=== PATIENT | female | born 1950 | race Caucasian/White ===

== ENCOUNTER 2018-05-13 19:40 | Emergency (ER) | payer MEDICARE ==
[~2018-05-13] VITALS: Ht 165.1 cm; Wt 99.8 kg
[2018-05-13] MEDS ORDERED: KETOROLAC 60MG/2ML VIAL IM ONE (20:15)
[2018-05-13] MEDS ORDERED: TRAMADOL 50MG TABLET PO ONE (22:00)
[2018-05-13 23:06] VITALS: BP 140/72
== END 2018-05-13 23:07 | disposition home or self-care (01) ==
LOC: ER 19:40
DX: S80.02XA Contusion of left knee, initial encounter (principal); E11.9 Type 2 diabetes mellitus without complications; E78.00 Pure hypercholesterolemia, unspecified; I48.91 Unspecified atrial fibrillation; Z96.659 Presence of unspecified artificial knee joint; W18.39XA Other fall on same level, initial encounter; Y93.89 Activity, other specified; Y92.89 Other specified places as the place of occurrence of the external cause; Y99.8 Other external cause status
CPT/HCPCS: 29505; 73552; 73560; 73590; 96372; 99283; J1885

== ENCOUNTER 2018-05-14 09:23 | Inpatient (IN) | payer MEDICARE, BC ==
[~2018-05-14] VITALS: Ht 172.7 cm; Wt 117.5 kg
[2018-05-14] MEDS ORDERED: SODIUM CHLORIDE 0.9% 1,000 ML IV ONE (10:42)
[2018-05-14] MEDS ORDERED: FENTANYL CITRATE/PF 50MCG/ML 2ML VIAL IV ONE (10:45)
[2018-05-14 12:00] LABS: BASOPHILS % 0.9 % (0.0-2.0); EOSINOPHILS % 0.4 % (0.0-5.0); HEMATOCRIT. 41.7 % (36.0-48.0); HEMOGLOBIN. 13.7 g/dL (12.0-16.0); LYMPHOCYTES % 10.4 % (20.0-50.0); MEAN CORPUSCULAR HEMOGLOBIN 27.8 pg (28.0-32.0); MEAN CORPUSCULAR VOLUME 84.6 fL (81.0-99.0); MEAN PLATELET VOLUME 9.1 fl (7.4-10.4); MONOCYTES % 7.5 % (2.0-8.0); NEUTROPHILS % 80.8 % (40.0-76.0); PLATELET 289 x1000/uL (130-400); RED BLOOD CELL COUNT 4.93 mill/uL (4.2-5.4)
[2018-05-14 12:02] LABS: CHLORIDE 108 mEq/L (98-107)
[2018-05-14 12:03] LABS: INR 1.1; PROTHROMBIN TIME 10.7 sec (9.1-11.1)
[2018-05-14 12:38] LABS: CLARITY URINE CLEAR (CLEAR); COLOR URINE YELLOW (YELLOW); KETONES URINE NEGATIVE (NEGATIVE); LEUKOCYTE ESTERASE URINE 1+ (NEGATIVE); NITRITE URINE NEGATIVE (NEGATIVE); OCCULT BLOOD URINE NEGATIVE (NEGATIVE); PROTEIN URINE NEGATIVE (NEGATIVE); SPECIFIC GRAVITY URINE 1.007 (1.005-1.030)
[2018-05-14] MEDS ORDERED: HYDROCODONE/ACETAMINOPHEN 5/325MG TABLET PO ONE (12:45)
[2018-05-14] MEDS ORDERED: CEFTRIAXONE 1 G PREMIX 50 ML IV ONE (13:30)
[2018-05-14] MEDS ORDERED: POTASSIUM CHLORIDE 20MEQ TABLET SR PO ONE (13:30)
[2018-05-14] MEDS ORDERED: MAGNESIUM/ALUMINUM HYDROXIDE/SIMETHICONE 30ML UDC PO PRN (15:45)
[2018-05-14] MEDS ORDERED: CLONIDINE 0.1MG TABLET PO PRN (15:45)
[2018-05-14] MEDS ORDERED: ONDANSETRON HCL 4MG/2ML INJ IV PRN (15:45)
[2018-05-14] MEDS ORDERED: POTASSIUM CHLORIDE 20MEQ TABLET SR PO NR (15:45)
[2018-05-14] MEDS ORDERED: IPRATROPIUM/ALBUTEROL 0.5-3(2.5)MG/3ML NEB INH PRN (15:45)
[2018-05-14] MEDS ORDERED: NITROGLYCERIN 0.4MG TABLET SL SL PRN (15:45)
[2018-05-14] MEDS ORDERED: GUAIFENESIN 200MG/10ML SUGAR FREE UDC PO PRN (15:45)
[2018-05-14] MEDS ORDERED: NA PHOS,M-B/NA PHOS,DI-BA ENEMA 118ML PR PRN (15:45)
[2018-05-14] MEDS ORDERED: DOCUSATE SODIUM 100MG CAPSULE PO PRN (15:45)
[2018-05-14 17:42] VITALS: BP 154/68
[2018-05-14] MEDS: ENOXAPARIN 120MG/0.8ML SYR SUBCUT SCH (18:09)
[2018-05-14] MEDS: DILTIAZEM HCL 60MG TABLET PO SCH ×2 (18:10→23:44)
[2018-05-14] MEDS: TRAMADOL 50MG TABLET PO PRN (18:11)
[2018-05-14 20:00] VITALS: BP 169/79
[2018-05-14] MEDS: LORAZEPAM 0.5MG TABLET PO PRN (20:06)
[2018-05-14] MEDS: FAMOTIDINE 20MG TABLET PO SCH (20:28)
[2018-05-14 20:30] VITALS: BP 169/79
[2018-05-14] MEDS ORDERED: KCL 20MEQ/100ML PREMIX 100 ML IV SCH (21:00)
[2018-05-14] MEDS ORDERED: THIAMINE HCL 100MG TABLET PO SCH (21:00)
[2018-05-14] MEDS ORDERED: MVI, ADULT NO.1 10 ML, FOLIC ACID 1 MG in SODIUM CHLORIDE 0.9% 1,000 ML IV SCH ×3 (21:00)
[2018-05-14 22:48] LABS: CREATINE KINASE 71 IU/L (26-192)
[2018-05-14 22:49] LABS: CREATINE KINASE MB FRACTION 3.8 ng/mL (0.5-3.6)
[2018-05-14] MEDS: ACETAMINOPHEN 325MG TABLET PO PRN (23:48)
[2018-05-14] MEDS: ZOLPIDEM TARTRATE 5MG TABLET PO PRN (23:49)
[2018-05-15] VITALS (33 sets, daily range): BP systolic 114–156; BP diastolic 48–89
[2018-05-15 00:51] LABS: *AMPHETAMINES SCREEN URINE NEGATIVE (NEGATIVE); *BARBITURATES SCREEN URINE NEGATIVE (NEGATIVE); *BENZODIAZEPINES SCREEN URINE NEGATIVE (NEGATIVE); *COCAINE SCREEN URINE NEGATIVE (NEGATIVE)
[2018-05-15 00:52] LABS: CANNABINOID URINE SCREEN PRESUMTIVE POSITIVE (NEGATIVE); METHADONE URINE SCREEN NEGATIVE (NEGATIVE); OPIATES URINE SCREEN PRESUMTIVE POSITIVE (NEGATIVE)
[2018-05-15 00:53] LABS: PHENCYCLIDINE URINE SCREEN NEGATIVE (NEGATIVE)
[2018-05-15] MEDS: DILTIAZEM HCL 60MG TABLET PO SCH ×3 (05:12→18:00)
[2018-05-15] MEDS: ENOXAPARIN 120MG/0.8ML SYR SUBCUT SCH (05:12)
[2018-05-15] MEDS: TRAMADOL 50MG TABLET PO PRN ×2 (05:12→12:36)
[2018-05-15 06:31] LABS: CREATINE KINASE 49 IU/L (26-192)
[2018-05-15 06:32] LABS: CREATINE KINASE MB FRACTION 2.7 ng/mL (0.5-3.6)
[2018-05-15] MEDS ORDERED: ASPIRIN 325MG EC TABLET PO SCH (09:00)
[2018-05-15] MEDS: FAMOTIDINE 20MG TABLET PO SCH ×2 (10:01→21:00)
[2018-05-15 12:02] LABS: CHLORIDE 110 mEq/L (98-107)
[2018-05-15] MEDS ORDERED: CEFTRIAXONE 1 G PREMIX 50 ML IV SCH (14:00)
[2018-05-15] MEDS: CEFTRIAXONE 1 G PREMIX 50 ML IV SCH (15:01)
[2018-05-15] MEDS ORDERED: NICARDIPINE 100 MG in SODIUM CHLORIDE 0.9% 60 ML IV PRN (16:30)
[2018-05-15] MEDS ORDERED: DEXT 5%/LACTATED RINGERS 1,000 ML IV SCH (16:30)
[2018-05-15] MEDS: MORPHINE SULFATE 4 MG/ML CPJ (NOT FOR IM USE) IV PRN ×2 (17:46→22:31)
[2018-05-16] VITALS (56 sets, daily range): BP systolic 48–161; BP diastolic 24–94
[2018-05-16] MEDS: MORPHINE SULFATE 4 MG/ML CPJ (NOT FOR IM USE) IV PRN ×2 (03:23→10:30)
[2018-05-16] MEDS: DILTIAZEM HCL 60MG TABLET PO SCH ×4 (05:24→18:21)
[2018-05-16] MEDS: FAMOTIDINE 20MG TABLET PO SCH ×2 (10:24→20:27)
[2018-05-16] MEDS: LORAZEPAM 0.5MG TABLET PO PRN ×2 (13:06→20:29)
[2018-05-16] MEDS: TRAMADOL 50MG TABLET PO PRN ×2 (13:06→23:00)
[2018-05-16] MEDS: CEFTRIAXONE 1 G PREMIX 50 ML IV SCH (13:47)
[2018-05-16] MEDS: THIAMINE HCL 100MG TABLET PO SCH (18:21)
[2018-05-16] MEDS: FOLIC ACID 1MG TABLET PO SCH (18:21)
[2018-05-16] MEDS: MULTIVITAMINS,THER W-MINERALS TABLET PO SCH (18:21)
[2018-05-16] MEDS ORDERED: IOHEXOL-350 100 ML BOTTLE ONE (19:03)
[2018-05-16] MEDS: LEVETIRACETAM 250MG TABLET PO SCH (20:27)
[2018-05-16] MEDS: ZOLPIDEM TARTRATE 5MG TABLET PO PRN (23:01)
[2018-05-17] VITALS (10 sets, daily range): BP systolic 121–163; BP diastolic 27–90
[2018-05-17] MEDS: DILTIAZEM HCL 60MG TABLET PO SCH ×4 (00:30→17:57)
[2018-05-17] MEDS: FAMOTIDINE 20MG TABLET PO SCH ×2 (09:55→20:57)
[2018-05-17] MEDS: MULTIVITAMINS,THER W-MINERALS TABLET PO SCH (10:03)
[2018-05-17] MEDS: AMLODIPINE 10MG TABLET PO SCH (10:03)
[2018-05-17] MEDS: THIAMINE HCL 100MG TABLET PO SCH (10:04)
[2018-05-17] MEDS: LEVETIRACETAM 250MG TABLET PO SCH ×2 (10:04→21:00)
[2018-05-17] MEDS: FOLIC ACID 1MG TABLET PO SCH (10:04)
[2018-05-17] MEDS: LORAZEPAM 0.5MG TABLET PO PRN ×2 (12:43→18:01)
[2018-05-17] MEDS: HYDROCODONE/ACETAMINOPHEN 5/325MG TABLET PO PRN ×2 (12:44→22:53)
[2018-05-17] MEDS: CEFTRIAXONE 1 G PREMIX 50 ML IV SCH (13:37)
[2018-05-17] MEDS: ZOLPIDEM TARTRATE 5MG TABLET PO PRN (21:01)
[2018-05-18] VITALS: BP 125/73
[2018-05-18] MEDS: LORAZEPAM 0.5MG TABLET PO PRN ×5 (00:11→23:58)
[2018-05-18] MEDS: DILTIAZEM HCL 60MG TABLET PO SCH ×6 (00:11→23:58)
[2018-05-18 04:00] VITALS: BP 114/57
[2018-05-18 08:00] VITALS: BP 138/65
[2018-05-18] MEDS: LEVETIRACETAM 250MG TABLET PO SCH ×2 (09:00→20:36)
[2018-05-18] MEDS: FOLIC ACID 1MG TABLET PO SCH (09:27)
[2018-05-18] MEDS: MULTIVITAMINS,THER W-MINERALS TABLET PO SCH (09:28)
[2018-05-18] MEDS: FAMOTIDINE 20MG TABLET PO SCH ×2 (09:28→20:36)
[2018-05-18] MEDS: AMLODIPINE 10MG TABLET PO SCH (09:29)
[2018-05-18] MEDS: THIAMINE HCL 100MG TABLET PO SCH (09:29)
[2018-05-18] MEDS: HYDROCODONE/ACETAMINOPHEN 5/325MG TABLET PO PRN ×3 (09:33→22:53)
[2018-05-18] MEDS: ACETAMINOPHEN 325MG TABLET PO PRN (11:54)
[2018-05-18 12:00] VITALS: BP 128/74
[2018-05-18] MEDS: CEFTRIAXONE 1 G PREMIX 50 ML IV SCH (14:00)
[2018-05-18] MEDS ORDERED: BISACODYL 10MG SUPP PR NR (14:15)
[2018-05-18] MEDS: CEFTRIAXONE 1,000 MG in DEXTROSE 5% WATER 50 ML IV SCH (15:19)
[2018-05-18 16:00] VITALS: BP 135/66
[2018-05-18 20:00] VITALS: BP 137/65
[2018-05-18] MEDS: ZOLPIDEM TARTRATE 5MG TABLET PO PRN (22:06)
[2018-05-19] VITALS: BP 135/72
[2018-05-19 04:00] VITALS: BP 131/62
[2018-05-19] MEDS: DILTIAZEM HCL 60MG TABLET PO SCH ×3 (05:45→17:51)
[2018-05-19] MEDS: HYDROCODONE/ACETAMINOPHEN 5/325MG TABLET PO PRN ×2 (05:46→12:08)
[2018-05-19 08:00] VITALS: BP 128/77
[2018-05-19] MEDS: AMLODIPINE 10MG TABLET PO SCH (09:00)
[2018-05-19] MEDS: LEVETIRACETAM 250MG TABLET PO SCH (09:00)
[2018-05-19] MEDS: FAMOTIDINE 20MG TABLET PO SCH (09:17)
[2018-05-19] MEDS: THIAMINE HCL 100MG TABLET PO SCH (09:17)
[2018-05-19] MEDS: FOLIC ACID 1MG TABLET PO SCH (09:17)
[2018-05-19] MEDS: MULTIVITAMINS,THER W-MINERALS TABLET PO SCH (09:17)
[2018-05-19] MEDS: LORAZEPAM 0.5MG TABLET PO PRN ×2 (09:18→14:20)
[2018-05-19 12:00] VITALS: BP 123/74
[2018-05-19] MEDS: CEFTRIAXONE 1,000 MG in DEXTROSE 5% WATER 50 ML IV SCH (12:10)
[2018-05-19 16:00] VITALS: BP 123/78
[2018-05-19 16:14] VITALS: BP 123/78
== END 2018-05-19 20:35 | DRG 83 ==
LOC: ER 09:23 → 8WST 14:47 → EDBEDREQ 14:51 → EDBEDREQSVC 15:26 → SUPCPDRO 15:34 → ENRESERV 15:38 → MICUSO 05-15 15:22 → 6EST 05-17 14:37
PROVIDERS: ADMIT Internal Medicine; ATTEND Internal Medicine
PROC: 4A00X4Z Measurement of Central Nervous Electrical Activity, External Approach (ICD-10-PCS; principal; 2018-05-17)
DX: S06.6X9A Traumatic subarachnoid hemorrhage with loss of consciousness of unspecified duration, initial encounter (principal); N39.0 Urinary tract infection, site not specified; E87.6 Hypokalemia; E83.51 Hypocalcemia; I48.0 Paroxysmal atrial fibrillation; I11.9 Hypertensive heart disease without heart failure; E66.01 Morbid (severe) obesity due to excess calories; E78.00 Pure hypercholesterolemia, unspecified; F10.229 Alcohol dependence with intoxication, unspecified; F12.90 Cannabis use, unspecified, uncomplicated; G35 Multiple sclerosis; I48.2 Chronic atrial fibrillation; G90.8 Other disorders of autonomic nervous system; X58.XXXA Exposure to other specified factors, initial encounter; Y90.8 Blood alcohol level of 240 mg/100 ml or more; Z96.653 Presence of artificial knee joint, bilateral; W19.XXXA Unspecified fall, initial encounter; Y93.89 Activity, other specified; Y92.89 Other specified places as the place of occurrence of the external cause; Z82.49 Family history of ischemic heart disease and other diseases of the circulatory system; Y99.8 Other external cause status; Z68.39 Body mass index [BMI] 39.0-39.9, adult
CPT/HCPCS: 29505; 36415; 70486; 70496; 70551; 71045; 73030; 73552; 73560; 73562; 73590; 80048; 80061; 80305; 82550; 82553; 83036; 83735; 84484; 93005; 93306; 93970; 96372; 96374; 96375; 97116; 97162; 97166; 99283; 99285; G0378; J0696; J1650; J1885; J2270; J3010; J3480; J3490; J7030; J7040; J7050; J7060; J7121; L1830; Q9967